=== PATIENT | female | born 1990 | race Caucasian/White ===

== ENCOUNTER 2018-03-22 11:40 | Emergency (ER) | payer BC ==
[~2018-03-22] VITALS: Ht 165.1 cm; Wt 63.5 kg
[2018-03-22] MEDS ORDERED: IBUP600 PO (12:06)
== END 2018-03-22 12:14 | disposition home or self-care (01) ==
LOC: ER 11:40
DX: S83.91XA Sprain of unspecified site of right knee, initial encounter (principal); W17.89XA Other fall from one level to another, initial encounter
CPT/HCPCS: 29505; 73562-RT; 99283-25

== ENCOUNTER 2018-05-12 07:12 | Day surgery (SDC) | payer BC ==
[~2018-05-12] VITALS: Ht 165.1 cm; Wt 66.7 kg
[~2018-05-12 07:12] MED LIST: IBUP600 PO
--- NOTE | 2018-05-12 10:58 | NUR ---
05/12/18 1058 Joy Mosquera PT MEDICATED FOR PAIN PER ORDERS. PT INTO RECLINER CONVERSATING WITH MOM AT CHAIRSIDE. POLAR PACK AND ELEVATION IMPLEMENTED. PT TOLERATING WATER WELL. PT DENIES PO SNACKS AT THIS TIME. VSS. PT DENIES NAUSEA. PT RATES PAIN 4-5/10 AND DESCRIBES IT AN ACHE.
== END 2018-05-12 11:59 | disposition home or self-care (01) ==
LOC: ORSCSDS 07:12
PROVIDERS: Orthopaedic Surgery
PROC: 0SBC4ZZ Excision of Right Knee Joint, Percutaneous Endoscopic Approach (ICD-10-PCS; principal; 2018-05-12 08:30)
PROC: 0MQN4ZZ Repair Right Knee Bursa and Ligament, Percutaneous Endoscopic Approach (ICD-10-PCS; principal; 2018-05-12 08:30)
DX: S83.511A Sprain of anterior cruciate ligament of right knee, initial encounter (principal); S83.281A Other tear of lateral meniscus, current injury, right knee, initial encounter
CPT/HCPCS: J0171; J0690; J1100; J1885; J2250; J2405; J2765; J2795; J3010; J7120

== ENCOUNTER 2018-09-21 08:38 | Day surgery (SDC) | payer BC ==
[2018-09-21 10:48] LABS: Performing Lab VERACYTE; Test Name FNA
[2018-09-24 19:31] LABS: Result SEE PATHOTH RESULTS
== END 2018-09-21 22:46 | disposition home or self-care (01) ==
LOC: US 08:38
PROVIDERS: Nurse Practitioner Women's Health
DX: E04.1 Nontoxic single thyroid nodule (principal); Z79.899 Other long term (current) drug therapy
CPT/HCPCS: 10005; 10006

== ENCOUNTER 2018-10-29 08:09 | Day surgery (SDC) | payer BC ==
[~2018-10-29] VITALS: Ht 165.1 cm; Wt 67.1 kg
[2018-10-29] MEDS ORDERED: HAILEY 24 FE 11 EACH PO (08:50)
--- NOTE | 2018-10-29 08:56 | NUR ---
10/29/18 0856 Lisandro Roth CALL LIGHT WITHIN REACH. FAMILY AT BEDSIDE
== END 2018-10-29 12:30 | disposition home or self-care (01) ==
LOC: ORSCSDS 08:09
PROVIDERS: Otolaryngology
PROC: 0GTK0ZZ Resection of Thyroid Gland, Open Approach (ICD-10-PCS; principal; 2018-10-29 09:30)
PROC: 0GBJ0ZZ Excision of Thyroid Gland Isthmus, Open Approach (ICD-10-PCS; principal; 2018-10-29 09:30)
DX: C73 Malignant neoplasm of thyroid gland (principal)
CPT/HCPCS: 88307; J0330; J1100; J1885; J2250; J2370; J2405; J2704; J3010; J7120